=== PATIENT | female | born 1955 | race Caucasian/White ===

== ENCOUNTER 2017-07-19 22:04 | Inpatient (IN) | END 2017-07-22 19:35 | DRG 281 ==

== ENCOUNTER 2018-08-23 20:17 | Emergency (ER) | payer MEDICARE, OTHER ==
[~2018-08-23] VITALS: Ht 167.6 cm; Wt 76.1 kg
[~2018-08-23 20:17] MED LIST: ACET325T33 PO; ALLO100T PO; ASC500 PO; ASPI-903 PO; ATOR10TA65 PO; BISA-57 PO; CALC-459 PO; CARV12.598 PO; FER325 PO; FOLI-49 PO; HYDR-4011 PO; INSU100C SQ; INSU100I27 SQ; MAGN400O19 PO; MINE133E23 PR; MULTI PO; PANT40TA3 PO; PRAM0.753 PO; PRED5TAB PO; SERT100T PO; SPIR25TA PO; TYL500 PO
[2018-08-23 20:35] VITALS: Ht 167.6 cm; Wt 76.1 kg
[2018-08-24] MEDS ORDERED: SOD CHLORIDE 0.9% 500 ML IV STA (00:15)
--- NOTE | 2018-08-24 03:39 | ERD ---
ER Documentation Chief Complaint Chief Complaint sent by pmd for blood transfusion HPI Is a 63-year-old female sent in by her PMD for blood transfusion. She was noted to have hemoglobin 7.5 but more concerning was that the patient was feeling generally weak. She has a history of anemia with transfusions in the past. Denies any focal neurologic complaints. Denies any current issues. ROS All systems reviewed and are negative except as per history of present illness. Medications Home Meds Reported Medications Hydrocodone/Acetaminophen ([place] 5-325 Tablet) 1 Each Tablet, 1 EACH PO Q4H, TAB FOR PAIN 7-11/1607/19/17 Magnesium Hydroxide* (Milk Of Magnesia*) 400 Mg/5 Ml Oral.susp, 30 ML PO DAILY, ML 07/19/17 Mineral Oil* (Fleet* Mineral Oil Enema) Unknown Strength Oil, 118 ML SD NEEDED PRN for CONSTIPATION, ENEMA Q 3 DAYS 07/19/17 Bisacodyl* (Dulcolax*) 5 Mg Tablet.dr, 10 MG PO DAILY PRN for CONSTIPATION, TAB 07/19/17 Insulin Detemir (Levemir Flextouch) 100 Unit/1 Ml Insuln.pen, 28 UNIT SQ Q12H 07/19/17 Sertraline Hcl* (Zoloft*) 100 Mg Tablet, 100 MG PO DAILY, #30 TAB 07/19/17 Insulin Lispro (Humalog) 100 Unit/1 Ml Cartridge, 8 UNIT SQ AC MEALS, EA 07/19/17 Spironolactone* (Aldactone*) 25 Mg Tablet, 25 MG PO DAILY, #30 TAB 07/19/17 Prednisone* (Prednisone*) 5 Mg Tab, 5 MG PO DAILY, TAB 07/19/17 Multivitamins* (Theragran*) 1 Tab Tab, 1 TAB PO DAILY, TAB 07/19/17 Pramipexole* (Mirapex*) 0.75 Mg Tablet, 0.75 MG PO TID, TAB 07/19/17 Atorvastatin Calcium (Atorvastatin Calcium) 10 Mg Tablet, 10 MG PO QHS, #30 TAB 07/19/17 Folic Acid* (Folic Acid*) 1 Mg Tablet, 1 MG PO DAILY, TAB 07/19/17 Carvedilol* (Coreg*) 12.5 Mg Tablet, 12.5 MG PO BID, #60 TAB HOLD IF SBP<110 OR HR<60 07/19/17 Calcium Carbonate (Calcium Carbonate) 500 Mg Tab.chew, 500 MG PO DAILY, TAB.CHEW 07/19/17 Aspirin* (Aspirin* Chew) 81 Mg Tab.chew, 81 MG PO DAILY, TAB.CHEW 07/19/17 Discontinued Reported Medications Acetaminophen* (Tylenol*) 500 Mg Tab, 1000 MG PO Q4H PRN for PAIN 4-07/17, TAB 07/19/17 Acetaminophen* (Tylenol*) 325 Mg Tablet, 650 MG PO Q4H PRN for MILD PAIN LEVEL 1-3, TAB 07/19/17 Ascorbic Acid (Vitamin C) 500 Mg Tab, 500 MG PO DAILY, TAB 07/19/17 Pantoprazole* (Protonix*) 40 Mg Tablet.dr, 40 MG PO DAILY, TAB 07/19/17 Ferrous Sulfate* (Ferrous Sulfate*) 325 Mg Tabec, 325 MG PO TID, TAB 07/19/17 Allopurinol* (Allopurinol*) 100 Mg Tablet, 100 MG PO DAILY, TAB 07/19/17 Allergies Allergies: Coded Allergies: adalimumab (Verified Allergy, Unknown, 07/20/17) infliximab (Verified Allergy, Unknown, 07/20/17) piperacillin (Verified Allergy, Unknown, 07/20/17) tazobactam (Verified Allergy, Unknown, 07/20/17) PMhx/Soc History of Surgery: Yes (Triple Bypass, Left Arm Sx) Anesthesia Reaction: No Hx Neurological Disorder: No Hx Respiratory Disorders: No Hx Cardiac Disorders: Yes (HTN, CAD, CHF, Chronic Anemia) Hx Psychiatric Problems: Yes (Depression) Hx Miscellaneous Medical Probl: Yes (MDS) Hx Alcohol Use: No Hx Substance Use: No Hx Tobacco Use: Yes Smoking Status: Current some day smoker Physical Exam Vitals Vital Signs Date Temp Pulse Resp B/P (MAP) Pulse Ox O2 O2 Flow FiO2 Time Delivery Rate 08/24/18 70 16 133/59 99 Room Air 03:25 (83) 08/23/18 99.3 97 18 97/52 (67) 96 20:35 Physical Exam Const: No acute distress Head: Atraumatic Eyes: Normal Conjunctiva ENT: Normal External Ears, Nose and Mouth. Neck: Full range of motion. No meningismus. Resp: Clear to auscultation bilaterally Cardio: Regular rate and rhythm, no murmurs Abd: Soft, non tender, non distended. Normal bowel sounds Skin: No petechiae or rashes Back: No midline or flank tenderness Ext: No cyanosis, or edema Neur: Awake and alert Psych: Normal Mood and Affect Result Diagram: 08/24/18 0018 08/24/18 0018 Results 24 hrs Laboratory Tests Test 08/24/18 00:18 White Blood Count 10.3 10^3/ul Red Blood Count 2.57 10^6/ul Hemoglobin 8.2 g/dl Hematocrit 25.9 % Mean Corpuscular Volume 100.8 fl Mean Corpuscular Hemoglobin 31.9 pg Mean Corpuscular Hemoglobin Concent 31.7 g/dl Red Cell Distribution Width 21.5 % Platelet Count 345 10^3/UL Mean Platelet Volume 10.5 fl Immature Granulocytes % 0.600 % Neutrophils % 73.1 % Lymphocytes % 14.2 % Monocytes % 8.4 % Eosinophils % 3.2 % Basophils % 0.5 % Nucleated Red Blood Cells % 0.4 /100WBC Immature Granulocytes # 0.060 10^3/ul Neutrophils # 7.6 10^3/ul Lymphocytes # 1.5 10^3/ul Monocytes # 0.9 10^3/ul Eosinophils # 0.3 10^3/ul Basophils # 0.1 10^3/ul Nucleated Red Blood Cells # 0.0 10^3/ul Sodium Level 142 mmol/L Potassium Level 4.3 mmol/L Chloride Level 104 mmol/L Carbon Dioxide Level 28 mmol/L Anion Gap 10 Blood Urea Nitrogen 18 mg/dl Creatinine 1.17 mg/dl Est Glomerular Filtrat Rate mL/min 47 mL/min Glucose Level 259 mg/dl Calcium Level 9.5 mg/dl Iron Level 41 ug/dl Total Iron Binding Capacity 206 ug/dl Percent Iron Saturation 20 % SAT Ferritin 2080.0 ng/ml Current Medications Medications Dose Sig/Nader Start Time Status Last (Trade) Ordered Route PRN Stop Time Admin Dose Reason Admin Sodium 500 ml @ Q1H STAT 08/24/18 DC Chloride 500 mls/hr IV 00:15 08/24/18 01:14 Procedures/MDM Medical decision making: Is a 63-year-old female comes in with severe anemia. Although she is not below 8, I do feel that her weakness is secondary to general anemia to be transfused 1 unit prior to discharge. She has been asked to follow-up with her primary care physician. Return for worsening symptoms. Departure Diagnosis: Primary Impression: Anemia Anemia type: unspecified type Qualified Codes: D64.9 - Anemia, unspecified Condition: Stable LORNE YANEZ Aug 24, 2018 03:39
[2018-08-24 08:39] VITALS: BP 116/57; PULSE 72; RESP 20
== END 2018-08-24 08:45 | disposition home or self-care (01) ==
LOC: E/R 20:17
DX: D64.9 Anemia, unspecified (principal); I11.0 Hypertensive heart disease with heart failure; I50.9 Heart failure, unspecified; I25.10 Atherosclerotic heart disease of native coronary artery without angina pectoris; F17.210 Nicotine dependence, cigarettes, uncomplicated; Z79.4 Long term (current) use of insulin; Z79.82 Long term (current) use of aspirin
CPT/HCPCS: 36430; 80048; 82728; 83540; 85025; 86644; 86850; 86900; 86901; 86920; 99285; J7040; P9016